=== PATIENT | female | born 1990 | race Caucasian/White ===

== ENCOUNTER 2017-11-22 17:45 | Emergency (ER) | payer OTHER ==
[~2017-11-22] VITALS: Ht 170.2 cm; Wt 73.9 kg
[2017-11-22] MEDS ORDERED: ANTICONCEPTIVOS (18:42)
== END 2017-11-22 22:38 | disposition home or self-care (01) ==
LOC: ER 17:45
DX: R10.11 Right upper quadrant pain (principal); D64.9 Anemia, unspecified